=== PATIENT | male | born 1980 | race Caucasian/White ===

== ENCOUNTER 2017-09-20 11:12 | Emergency (ER) | payer MEDICAID ==
[~2017-09-20] VITALS: Ht 185.4 cm; Wt 89.8 kg
[2017-09-20 11:28] VITALS: BP 122/80
== END 2017-09-20 13:05 | disposition home or self-care (01) ==
LOC: ED 12:00
DX: S63.501A Unspecified sprain of right wrist, initial encounter (principal); S09.90XA Unspecified injury of head, initial encounter; J44.9 Chronic obstructive pulmonary disease, unspecified; W17.89XA Other fall from one level to another, initial encounter; Y93.89 Activity, other specified; Y92.89 Other specified places as the place of occurrence of the external cause; Y99.8 Other external cause status
CPT/HCPCS: 29260; 70450; 99284

== ENCOUNTER 2018-07-08 11:39 | Emergency (ER) | payer MEDICAID ==
[~2018-07-08] VITALS: Ht 185.4 cm; Wt 95.0 kg
--- NOTE | 2018-07-08 12:13 | NUR ---
TASK RN: PT RESTING ON GURNEY. ALL SEIZURE PRECAUTIONS IN PLACE. PT HAS OBVIOUS BUMP ON RIGHT FOREHEAD.. PT STATES "I DON'T REMEMBER." FRIENDS BEDSIDE. NO ACUTE DISTRESS NOTED.
--- NOTE | 2018-07-08 12:33 | NUR ---
BEDSIDE REPORT TO AMBER ALEX
[2018-07-08 12:57] LABS: BASOPHILS # (AUTO) 0.01 x10^3/uL (0-0.1); BASOPHILS % (AUTO) 0 % (0-1); EOSINOPHILS # (AUTO) 0.04 x10^3/uL (0-0.4); EOSINOPHILS % (AUTO) 1 % (1-7); LYMPHOCYTES # (AUTO) 1.36 x10^3/uL (1-3.4); LYMPHOCYTES % (AUTO) 18 % (22-44); MD NO; MEAN CORPUSCULAR HEMOGLOBIN 29.8 pg (27.5-34.5); MEAN CORPUSCULAR HGB CONC 34.1 g/dL (33.2-36.2); MEAN CORPUSCULAR VOLUME 87.3 fL (81-97); MEAN PLATELET VOLUME 8.8 fL (7.4-10.4); MONOCYTES # (AUTO) 0.41 x10^3/uL (0.2-0.8); MONOCYTES % (AUTO) 5 % (2-9); NEUTROPHILS # (AUTO) 5.79 x10^3/uL (1.8-6.8); NEUTROPHILS % (AUTO) 76 % (42-75); PLATELET COUNT 168 x10^3/uL (130-400); RED BLOOD COUNT 4.76 x10^6/uL (4.38-5.82); RED CELL DISTRIBUTION WIDTH 13.6 % (9.4-14.8)
[2018-07-08 13:05] LABS: ANION GAP 5 mmol/L (5-15); CHLORIDE 108 mmol/L (98-107); CREATININE 0.82 mg/dL (0.7-1.3)
--- NOTE | 2018-07-08 13:11 | NUR ---
PT RESTING IN BED USING HIS PHONE. NO COMPLAINS AT THIS TIME. TOLERATING PO INTAKE
[2018-07-08 13:33] VITALS: BP 113/74
--- NOTE | 2018-07-08 13:39 | NUR ---
md at bs discussion dc plan and follow up
== END 2018-07-08 14:17 | disposition home or self-care (01) ==
LOC: ED 14:09
DX: S09.8XXA Other specified injuries of head, initial encounter (principal); R55 Syncope and collapse; J44.9 Chronic obstructive pulmonary disease, unspecified; Z87.891 Personal history of nicotine dependence; W19.XXXA Unspecified fall, initial encounter; Y93.89 Activity, other specified; Y92.89 Other specified places as the place of occurrence of the external cause; Y99.8 Other external cause status
CPT/HCPCS: 36415; 71045; 80048; 82040; 85025; 93005; 99284